=== PATIENT | female | born 1945 | race Caucasian/White ===

== ENCOUNTER 2019-09-30 13:27 | Emergency (ER) | payer MEDICARE, OTHER ==
[~2019-09-30] VITALS: Ht 165.1 cm; Wt 62.9 kg
[~2019-09-30 13:27] MED LIST: ADV50250 IH; ALBU6.7H3 INH; ASPI-1264 PO; ATOR40TA PO; CALC1TAB96 PO; CARI350T PO; DILT120C10 PO; DULO-31 PO; FEXO-124 PO; FLUT16SP2 NS; LOSA1TAB41 PO; METF500T PO; MULT-1085 PO; NITR0.4T SL; NITR100C6 PO; OMEG-79 PO; PANT40TA39 PO; PRED50TA PO; SYN0.075T PO; VITA400T8 PO
[2019-09-30 13:49] VITALS: BP 188/96
[2019-09-30] MEDS ORDERED: PENI500T2 PO (14:37)
[2019-09-30] MEDS ORDERED: IBUP-1984 PO (14:37)
[2019-09-30] MEDS ORDERED: ONDA4TAB6 PO (14:41)
== END 2019-09-30 15:24 | disposition home or self-care (01) ==
LOC: ER 13:27
DX: K04.7 Periapical abscess without sinus (principal); I10 Essential (primary) hypertension; J44.9 Chronic obstructive pulmonary disease, unspecified; E11.9 Type 2 diabetes mellitus without complications; M79.7 Fibromyalgia; Z88.6 Allergy status to analgesic agent; Z79.82 Long term (current) use of aspirin; Z79.899 Other long term (current) drug therapy; Z79.2 Long term (current) use of antibiotics; Z98.890 Other specified postprocedural states; Z90.89 Acquired absence of other organs
CPT/HCPCS: 99283

== ENCOUNTER 2020-07-06 10:27 | Emergency (ER) | payer MEDICARE, OTHER ==
[~2020-07-06] VITALS: Ht 165.1 cm; Wt 70.0 kg
[~2020-07-06 10:27] MED LIST changes: +CALC-1205 PO; -CALC1TAB96 PO; +ONDA4TAB6 PO
[2020-07-06 10:28] VITALS: BP 207/17
[2020-07-06] MEDS ORDERED: IBUP-1985 PO (10:43)
[2020-07-06] MEDS ORDERED: PENI500T2 PO (10:43)
[2020-07-06] MEDS ORDERED: ibuprofen tablet 400 MG TABLET PO ONE (10:45)
[2020-07-06] MEDS ORDERED: ibuprofen 200mg tablet PO ONE (10:50)
== END 2020-07-06 11:04 | disposition home or self-care (01) ==
LOC: ER 10:27
DX: K02.9 Dental caries, unspecified (principal); I10 Essential (primary) hypertension; J44.9 Chronic obstructive pulmonary disease, unspecified; E11.9 Type 2 diabetes mellitus without complications; Z90.89 Acquired absence of other organs; Z98.890 Other specified postprocedural states; Z88.5 Allergy status to narcotic agent; Z88.8 Allergy status to other drugs, medicaments and biological substances; Z79.82 Long term (current) use of aspirin; Z79.899 Other long term (current) drug therapy
CPT/HCPCS: 99283

== ENCOUNTER 2020-12-01 14:59 | Emergency (ER) | payer MEDICARE, OTHER ==
[~2020-12-01] VITALS: Ht 165.1 cm; Wt 65.0 kg
[~2020-12-01 14:59] MED LIST changes: +IBUP-1985 PO
[2020-12-01 16:19] LABS: BASOPHILS # (AUTO) 0.1 X10'3 (0-0.2); BASOPHILS % (AUTO) 0.4 % (0-1); EOSINOPHILS % (AUTO) 0.3 % (0-6); HEMATOCRIT 41.7 % (35.0-45.0); LYMPHOCYTES # (AUTO) 2.2 X10'3 (1.1-4.8); LYMPHOCYTES % (AUTO) 18.7 % (21-51); MEAN CORPUSCULAR HEMOGLOBIN 28.8 PG (27.0-31.0); MEAN CORPUSCULAR HGB CONC 33.6 g/dL (33.0-36.5); MEAN CORPUSCULAR VOLUME 85.7 FL (78-98); MEAN PLATELET VOLUME 8.1 FL (7.4-10.4); MONOCYTES # (AUTO) 0.8 X10'3 (0-0.9); MONOCYTES % (AUTO) 6.7 % (2-12); NEUTROPHILS # (AUTO) 8.7 X10'3 (1.8-7.7); NEUTROPHILS % (AUTO) 73.9 % (42-75); PLATELET COUNT 323 X10'3 (140-440); RED BLOOD COUNT 4.86 X10'6 (4.20-5.60); RED CELL DISTRIBUTION WIDTH 13.7 % (11.5-14.5); WHITE BLOOD COUNT 11.8 X10'3 (4.5-11.0)
[2020-12-01 16:29] LABS: ALANINE AMINOTRANSFERASE 114 U/L (12-78); ALKALINE PHOSPHATASE 248 IU/L (46-116); ANION GAP 8 (8-16); ASPARTATE AMINO TRANSFERASE 150 U/L (10-37); BILIRUBIN,TOTAL 0.5 MG/DL (0.1-1.0); BLOOD UREA NITROGEN 10 MG/DL (7-18); BUN/CREATININE RATIO 16.1 (6.6-38.0); CALCIUM 9.4 MG/DL (8.5-10.1); CHLORIDE 106 MMOL/L (99-107); CREATININE 0.62 MG/DL (0.40-0.90); GLUCOSE 111 MG/DL (70-104); POTASSIUM 3.1 MMOL/L (3.5-5.1); SODIUM 144 MMOL/L (135-145); TOTAL CARBON DIOXIDE 29.8 MMOL/L (24-32); TOTAL PROTEIN 8.2 G/DL (6.4-8.2); eGFR > 90 ML/MIN
--- NOTE | 2020-12-01 18:04 | NUR ---
PA AT BEDSIDE DOING U/S EXAM
[2020-12-01 18:36] VITALS: BP 161/64
[2020-12-01] MEDS ORDERED: potassium Cl 20 mEq SR tablet PO STA (18:59)
[2020-12-01 19:38] LABS: CLARITY,URINE CLEAR (Clear); COLOR,URINE YELLOW (Yellow); GLUCOSE, URINE NEGATIVE (Neg); KETONES,URINE NEGATIVE (Neg); LEUKOCYTE ESTERASE ,URINE NEGATIVE (Neg); NITRITES, URINE NEGATIVE (Neg); OCCULT BLOOD,URINE TRACE-INTACT (Neg); PH,URINE 7.5 (4.8-8.0); PROTEIN,URINE NEGATIVE (Neg); UROBILINOGEN,URINE 0.2 E.U/dL (0.2-1.0)
[2020-12-01 19:46] LABS: UA COLLECTION TYPE STRAIGHT CATH
[2020-12-01 19:47] LABS: BACTERIA,URINE FEW /HPF (Neg); RBC,URINE 0-2 /HPF (0-2); SQUAMOUS EPITHELIAL CELL,UR FEW /LPF (FEW); WBC,URINE NONE SEEN /HPF (0-4)
[2020-12-01] MEDS ORDERED: iohexol 350MG/ML 100ml bottle IV ONE (19:54)
[2020-12-01] MEDS ORDERED: MESSAGE TO NURSING PO NR (20:15)
[2020-12-01] MEDS ORDERED: acetaminophen 325mg tablet PO ONE (21:10)
== END 2020-12-01 21:35 | disposition home or self-care (01) ==
LOC: ER 15:00
DX: S29.012A Strain of muscle and tendon of back wall of thorax, initial encounter (principal); R10.13 Epigastric pain; I25.10 Atherosclerotic heart disease of native coronary artery without angina pectoris; I10 Essential (primary) hypertension; J44.9 Chronic obstructive pulmonary disease, unspecified; E11.9 Type 2 diabetes mellitus without complications; E03.9 Hypothyroidism, unspecified; Z90.89 Acquired absence of other organs; Z98.890 Other specified postprocedural states; Z88.5 Allergy status to narcotic agent; Z88.6 Allergy status to analgesic agent; Z88.8 Allergy status to other drugs, medicaments and biological substances; Z79.82 Long term (current) use of aspirin; Z79.899 Other long term (current) drug therapy; X58.XXXA Exposure to other specified factors, initial encounter; Y93.89 Activity, other specified; Y92.89 Other specified places as the place of occurrence of the external cause; Y99.8 Other external cause status
CPT/HCPCS: 36415; 71045; 71275; 74175; 80053; 81001; 83880; 84484; 85025; 93005; 99285; Q9967

== ENCOUNTER 2020-12-03 17:21 | Emergency (ER) | payer MEDICARE, OTHER ==
[~2020-12-03] VITALS: Ht 165.1 cm; Wt 62.2 kg
[2020-12-03 18:18] LABS: CLARITY,URINE CLOUDY (Clear); COLOR,URINE RED (Yellow); GLUCOSE, URINE NEGATIVE (Neg); KETONES,URINE NEGATIVE (Neg); LEUKOCYTE ESTERASE ,URINE MODERATE (Neg); NITRITES, URINE NEGATIVE (Neg); OCCULT BLOOD,URINE LARGE (Neg); PROTEIN,URINE 100 mg/dl (Neg); UROBILINOGEN,URINE 0.2 E.U/dL (0.2-1.0)
[2020-12-03 18:21] LABS: UA COLLECTION TYPE NON-SPECIFIED
[2020-12-03 18:37] LABS: BACTERIA,URINE 1+ /HPF (Neg); RBC,URINE TNTC /HPF (0-2); WBC CLUMPS,URINE MANY /HPF (NEGATIVE)
[2020-12-03 18:38] LABS: SQUAMOUS EPITHELIAL CELL,UR FEW /LPF (FEW)
[2020-12-03] MEDS ORDERED: normal saline 1000ML IV soln IVB ONE (19:30)
[2020-12-03] MEDS ORDERED: acetaminophen 325mg tablet PO ONE (19:55)
[2020-12-03 19:56] LABS: BASOPHILS % (AUTO) 0.2 % (0-1); EOSINOPHILS % (AUTO) 0.1 % (0-6); HEMATOCRIT 42.4 % (35.0-45.0); LYMPHOCYTES # (AUTO) 1.2 X10'3 (1.1-4.8); LYMPHOCYTES % (AUTO) 5.8 % (21-51); MEAN CORPUSCULAR HEMOGLOBIN 28.5 PG (27.0-31.0); MEAN CORPUSCULAR HGB CONC 32.9 g/dL (33.0-36.5); MEAN CORPUSCULAR VOLUME 86.4 FL (78-98); MEAN PLATELET VOLUME 8.3 FL (7.4-10.4); MONOCYTES % (AUTO) 4.9 % (2-12); NEUTROPHILS # (AUTO) 18.4 X10'3 (1.8-7.7); PLATELET COUNT 307 X10'3 (140-440); RED CELL DISTRIBUTION WIDTH 13.8 % (11.5-14.5); WHITE BLOOD COUNT 20.7 X10'3 (4.5-11.0)
[2020-12-03 20:10] LABS: ALANINE AMINOTRANSFERASE 67 U/L (12-78); ALKALINE PHOSPHATASE 213 IU/L (46-116); ANION GAP 11 (8-16); ASPARTATE AMINO TRANSFERASE 37 U/L (10-37); BILIRUBIN,TOTAL 0.8 MG/DL (0.1-1.0); BLOOD UREA NITROGEN 13 MG/DL (7-18); BUN/CREATININE RATIO 18.6 (6.6-38.0); CALCIUM 9.5 MG/DL (8.5-10.1); CHLORIDE 104 MMOL/L (99-107); GLUCOSE 131 MG/DL (70-104); POTASSIUM 3.6 MMOL/L (3.5-5.1); SODIUM 141 MMOL/L (135-145); TOTAL CARBON DIOXIDE 25.7 MMOL/L (24-32); eGFR 82 ML/MIN
[2020-12-03] MEDS ORDERED: CefTRIAXone 2gm/D5W 50ml BAG 50 ML IV ONE (20:40)
[2020-12-03] MEDS ORDERED: PHEN-786 PO (20:47)
[2020-12-03] MEDS ORDERED: CEPH-585 PO (20:47)
[2020-12-03] MEDS ORDERED: phenazopyridine 100mg tablet PO ONE (20:50)
[2020-12-03 21:02] VITALS: BP 164/77
== END 2020-12-03 21:04 | disposition home or self-care (01) ==
LOC: ER 17:22
DX: N39.0 Urinary tract infection, site not specified (principal); R10.2 Pelvic and perineal pain; R50.9 Fever, unspecified; R11.0 Nausea; R31.9 Hematuria, unspecified; M54.5 Low back pain; I25.10 Atherosclerotic heart disease of native coronary artery without angina pectoris; I10 Essential (primary) hypertension; J44.9 Chronic obstructive pulmonary disease, unspecified; E11.9 Type 2 diabetes mellitus without complications; E03.9 Hypothyroidism, unspecified; Z90.89 Acquired absence of other organs; Z98.890 Other specified postprocedural states; Z88.5 Allergy status to narcotic agent; Z88.6 Allergy status to analgesic agent; Z88.8 Allergy status to other drugs, medicaments and biological substances; Z79.82 Long term (current) use of aspirin; Z79.899 Other long term (current) drug therapy
CPT/HCPCS: 36415; 80053; 81001; 84145; 85025; 87077; 87088; 87186; 96361; 96374; 99283; J0696; J7030

== ENCOUNTER 2021-11-27 07:00 | Emergency (ER) | payer MEDICARE, OTHER ==
[~2021-11-27] VITALS: Ht 162.6 cm; Wt 75.0 kg
[~2021-11-27 07:00] MED LIST changes: +CEPH-585 PO; -FEXO-124 PO; +FEXO-271 PO; +PHEN-786 PO
[2021-11-27 07:04] VITALS: BP 195/72
== END 2021-11-27 08:02 | disposition home or self-care (01) ==
LOC: ER 07:00
DX: I10 Essential (primary) hypertension (principal); M54.2 Cervicalgia; R42 Dizziness and giddiness; E11.9 Type 2 diabetes mellitus without complications; J44.9 Chronic obstructive pulmonary disease, unspecified; E03.8 Other specified hypothyroidism; Z88.5 Allergy status to narcotic agent; Z88.8 Allergy status to other drugs, medicaments and biological substances; Z79.899 Other long term (current) drug therapy
CPT/HCPCS: 93005; 99283

== ENCOUNTER 2023-03-25 14:49 | Emergency (ER) | payer MEDICARE, OTHER ==
[~2023-03-25] VITALS: Ht 165.1 cm; Wt 68.0 kg
[~2023-03-25 14:49] MED LIST changes: -CEPH-585 PO
[2023-03-25 14:56] VITALS: BP 157/96
== END 2023-03-25 22:14 | disposition left against medical advice (07) ==
LOC: ER 14:51
DX: M54.2 Cervicalgia (principal); M54.9 Dorsalgia, unspecified; Z53.21 Procedure and treatment not carried out due to patient leaving prior to being seen by health care provider
CPT/HCPCS: 82948; 99281

== ENCOUNTER 2023-11-01 10:11 | Emergency (ER) | payer MEDICARE, OTHER ==
[~2023-11-01] VITALS: Ht 167.6 cm; Wt 68.2 kg
[2023-11-01] MEDS ORDERED: PRED20TA PO (15:24)
[2023-11-01] MEDS ORDERED: BACL10TA2 PO (15:24)
[2023-11-01 15:37] VITALS: BP 170/73; PULSE 65; RESP 16; TEMP 97.9; O2SAT 99
== END 2023-11-01 15:39 | disposition home or self-care (01) ==
LOC: ER 10:11
DX: M47.812 Spondylosis without myelopathy or radiculopathy, cervical region (principal); I11.0 Hypertensive heart disease with heart failure; J45.909 Unspecified asthma, uncomplicated; J44.9 Chronic obstructive pulmonary disease, unspecified; E11.9 Type 2 diabetes mellitus without complications; E03.9 Hypothyroidism, unspecified; Z98.890 Other specified postprocedural states; Z88.8 Allergy status to other drugs, medicaments and biological substances; Z79.899 Other long term (current) drug therapy; Z88.5 Allergy status to narcotic agent
CPT/HCPCS: 72125; 99284

== ENCOUNTER 2024-03-16 16:35 | Outpatient (CLI) | payer MEDICARE, OTHER ==
[~2024-03-16 16:35] MED LIST changes: +BACL10TA2 PO
[2024-03-16 17:06] LABS: BASOPHILS # (AUTO) 0.1 X10'3 (0-0.2); BASOPHILS % (AUTO) 0.8 % (0-1); EOSINOPHILS # (AUTO) 0.1 X10'3 (0-0.9); EOSINOPHILS % (AUTO) 0.8 % (0-6); HEMATOCRIT 42.7 % (35.0-45.0); HEMOGLOBIN 14.3 g/dl (12.0-16.0); LYMPHOCYTES # (AUTO) 2.3 X10'3 (1.1-4.8); LYMPHOCYTES % (AUTO) 24.7 % (21-51); MEAN CORPUSCULAR HEMOGLOBIN 28.3 PG (27.0-31.0); MEAN CORPUSCULAR HGB CONC 33.5 g/dL (33.0-36.5); MEAN CORPUSCULAR VOLUME 84.3 FL (78-98); MEAN PLATELET VOLUME 8.8 FL (7.4-10.4); MONOCYTES # (AUTO) 0.8 X10'3 (0-0.9); MONOCYTES % (AUTO) 8.3 % (2-12); NEUTROPHILS # (AUTO) 6.1 X10'3 (1.8-7.7); NEUTROPHILS % (AUTO) 65.4 % (42-75); PLATELET COUNT 320 X10'3 (140-440); RED BLOOD COUNT 5.07 X10'6 (4.20-5.60); RED CELL DISTRIBUTION WIDTH 14.5 % (11.5-14.5); WHITE BLOOD COUNT 9.3 X10'3 (4.5-11.0)
[2024-03-16 17:25] LABS: HEMOGLOBIN A1C 6.1 % (4.5-6.2)
[2024-03-16 17:26] LABS: ALANINE AMINOTRANSFERASE 20 U/L (12-78); ALBUMIN 3.8 G/DL (3.4-5.0); ALBUMIN/GLOBULIN RATIO 0.9 (1.1-1.5); ALKALINE PHOSPHATASE 111 IU/L (46-116); ANION GAP 8 (8-16); ASPARTATE AMINO TRANSFERASE 15 U/L (10-37); BILIRUBIN,TOTAL 0.8 MG/DL (0.1-1.0); BLOOD UREA NITROGEN 10 MG/DL (7-18); BUN/CREATININE RATIO 11.5 (10.0-20.0); C-REACTIVE PROTEIN 0.45 MG/DL (0.0-0.5); CALCIUM 9.9 MG/DL (8.5-10.1); CHLORIDE 103 MMOL/L (99-107); CHOL/HDL RATIO 5.9 (0.00-4.99); CHOLESTEROL 223 MG/DL (0-200); CREATININE 0.87 MG/DL (0.40-0.90); FREE T4 (FREE THYROXINE) 0.86 NG/DL (0.73-1.40); GLUCOSE 126 MG/DL (70-104); HDL CHOLESTEROL 38 MG/DL (35-60); LDL CHOLESTEROL 136 MG/DL (50-100); SODIUM 144 MMOL/L (135-145); THYROID STIMULATING HORMONE 3.17 ulU/ml (0.34-4.50); TOTAL CARBON DIOXIDE 32.7 MMOL/L (24-32); TRIGLYCERIDES 318 MG/DL (20-135); eGFR 63 ML/MIN
== END 2024-03-16 23:59 | disposition home or self-care (01) ==
LOC: RAD 16:35
PROVIDERS: ATTEND Family Medicine
DX: I10 Essential (primary) hypertension (principal); E78.5 Hyperlipidemia, unspecified; E03.9 Hypothyroidism, unspecified; E11.9 Type 2 diabetes mellitus without complications; E83.51 Hypocalcemia; Z76.89 Persons encountering health services in other specified circumstances
CPT/HCPCS: 36415; 80053; 80061; 82306; 83036; 84439; 84443; 85025; 86140

== ENCOUNTER 2024-03-19 10:20 | Outpatient (CLI) | payer MEDICARE, OTHER | END 2024-03-19 23:59 | disposition home or self-care (01) | LOC: RAD 10:20 | PROVIDERS: ATTEND Family Medicine | DX: E87.6 Hypokalemia (principal) | CPT/HCPCS: 36415; 82088; 84244 ==

== ENCOUNTER 2024-08-05 07:43 | Emergency (ER) | payer MEDICARE, OTHER ==
[~2024-08-05] VITALS: Ht 162.6 cm; Wt 66.8 kg
[2024-08-05 07:47] VITALS: TEMP 98.5
[2024-08-05 08:50] LABS: BASOPHILS # (AUTO) 0.1 X10'3 (0-0.2); BASOPHILS % (AUTO) 0.6 % (0-1); EOSINOPHILS # (AUTO) 0.1 X10'3 (0-0.9); EOSINOPHILS % (AUTO) 0.9 % (0-6); HEMATOCRIT 45.4 % (35.0-45.0); HEMOGLOBIN 15.4 g/dl (12.0-16.0); LYMPHOCYTES # (AUTO) 1.9 X10'3 (1.1-4.8); LYMPHOCYTES % (AUTO) 20.8 % (21-51); MEAN CORPUSCULAR HEMOGLOBIN 28.9 PG (27.0-31.0); MEAN CORPUSCULAR HGB CONC 33.8 g/dL (33.0-36.5); MEAN CORPUSCULAR VOLUME 85.5 FL (78-98); MEAN PLATELET VOLUME 8.5 FL (7.4-10.4); MONOCYTES # (AUTO) 0.6 X10'3 (0-0.9); MONOCYTES % (AUTO) 6.3 % (2-12); NEUTROPHILS # (AUTO) 6.5 X10'3 (1.8-7.7); NEUTROPHILS % (AUTO) 71.4 % (42-75); PLATELET COUNT 308 X10'3 (140-440); RED BLOOD COUNT 5.31 X10'6 (4.20-5.60); RED CELL DISTRIBUTION WIDTH 14.1 % (11.5-14.5); WHITE BLOOD COUNT 9.1 X10'3 (4.5-11.0)
[2024-08-05 09:02] LABS: ALANINE AMINOTRANSFERASE 16 U/L (12-78); ALBUMIN 4.2 G/DL (3.4-5.0); ALBUMIN/GLOBULIN RATIO 0.9 (1.1-1.5); ALKALINE PHOSPHATASE 152 IU/L (46-116); ANION GAP 10 (8-16); ASPARTATE AMINO TRANSFERASE 16 U/L (10-37); BILIRUBIN,TOTAL 0.8 MG/DL (0.1-1.0); BLOOD UREA NITROGEN 12 MG/DL (7-18); BUN/CREATININE RATIO 12.8 (10.0-20.0); CALCIUM 9.7 MG/DL (8.5-10.1); CHLORIDE 102 MMOL/L (99-107); CREATININE 0.94 MG/DL (0.40-0.90); GLUCOSE 123 MG/DL (70-104); POTASSIUM 3.2 MMOL/L (3.5-5.1); SODIUM 141 MMOL/L (135-145); TOTAL CARBON DIOXIDE 29.3 MMOL/L (24-32); TOTAL PROTEIN 8.9 G/DL (6.4-8.2); eCRCL 43 ML/MIN; eGFR 58 ML/MIN
[2024-08-05 09:09] LABS: PRO BRAIN NATRIURETIC PEPTIDE 58 PG/ML (0-450)
[2024-08-05] MEDS: diltiazem 5mg/ml 5ml inj. IV ONE (11:26)
[2024-08-05 13:23] VITALS: BP 135/76; PULSE 61; RESP 12; O2SAT 99
== END 2024-08-05 13:23 | disposition home or self-care (01) ==
LOC: ER 07:44
DX: R07.89 Other chest pain (principal); I25.10 Atherosclerotic heart disease of native coronary artery without angina pectoris; E11.9 Type 2 diabetes mellitus without complications; E03.9 Hypothyroidism, unspecified; J45.909 Unspecified asthma, uncomplicated; J44.9 Chronic obstructive pulmonary disease, unspecified; M79.7 Fibromyalgia; I10 Essential (primary) hypertension; Z90.89 Acquired absence of other organs; Z88.6 Allergy status to analgesic agent; Z88.5 Allergy status to narcotic agent; Z88.8 Allergy status to other drugs, medicaments and biological substances; Z79.82 Long term (current) use of aspirin; Z98.890 Other specified postprocedural states; Z79.1 Long term (current) use of non-steroidal anti-inflammatories (NSAID); Z79.52 Long term (current) use of systemic steroids; Z79.84 Long term (current) use of oral hypoglycemic drugs; Z79.899 Other long term (current) drug therapy
CPT/HCPCS: 36415; 71045; 80053; 83880; 84484; 85025; 93005; 96374; 99285; J3490

== ENCOUNTER 2025-01-06 10:31 | Emergency (ER) | payer MEDICARE, OTHER ==
[~2025-01-06] VITALS: Ht 162.6 cm; Wt 64.7 kg
--- NOTE | 2025-01-06 10:56 | ELECTROCARDIOGRAPH REPORT ---
[facility] Test Date: 2025-01-06 Test Time: 10:54:11 Pat Name: JAZZ ALMONTE Department: [facility]- Patient ID: [id number] Room: Gender: F Veterinary Attendant: : 1945 Requested By: FRANCOIS TERRAZAS Order Number: [id number] Reading MD: Dr. Ed Barr Measurements Intervals [place] Rate: 74 P: 56 PA: 177 QRS: -21 QRSD: 93 T: 26 QT: 419 QTc: 465 Interpretive Statements Sinus rhythm Borderline left axis deviation Borderline T abnormalities, anterior leads Electronically Signed On 01-07-2025 19:02:[address] Ed Barr Please click the below link to view image of tracing.
[2025-01-06 11:26] LABS: BASOPHILS # (AUTO) 0.1 X10'3 (0-0.2); BASOPHILS % (AUTO) 1.1 % (0-1); EOSINOPHILS # (AUTO) 0.1 X10'3 (0-0.9); EOSINOPHILS % (AUTO) 1.4 % (0-6); HEMATOCRIT 45.4 % (35.0-45.0); HEMOGLOBIN 15.2 g/dl (12.0-16.0); LYMPHOCYTES # (AUTO) 1.4 X10'3 (1.1-4.8); LYMPHOCYTES % (AUTO) 21.4 % (21-51); MEAN CORPUSCULAR HEMOGLOBIN 27.7 PG (27.0-31.0); MEAN CORPUSCULAR HGB CONC 33.5 g/dL (33.0-36.5); MEAN CORPUSCULAR VOLUME 82.7 FL (78-98); MEAN PLATELET VOLUME 8.1 FL (7.4-10.4); MONOCYTES # (AUTO) 0.4 X10'3 (0-0.9); MONOCYTES % (AUTO) 6.3 % (2-12); NEUTROPHILS # (AUTO) 4.7 X10'3 (1.8-7.7); NEUTROPHILS % (AUTO) 69.8 % (42-75); PLATELET COUNT 289 X10'3 (140-440); RED CELL DISTRIBUTION WIDTH 14.4 % (11.5-14.5); WHITE BLOOD COUNT 6.7 X10'3 (4.5-11.0)
--- NOTE | 2025-01-06 11:31 | Physician Documentation ---
History of Present Illness ~ Chief Complaint: Stroke Alert Stated Complaint: BACK AND NECK PAIN FROM FALL Time Seen by MD: 10:58 Primary Medical Doctor: Raymond CORMIER 79-year-old female presenting with two weeks of dizziness. She states that she had one episode two weeks ago while she was walking her dogs and she suddenly became very dizzy and fell backwards and hit her head on the ground. She did not lose consciousness and was able to get back up and get back home. Over the last couple of days she has noticed that she has started to get very dizzy once again. She describes the dizziness as the room spinning and when it occurs she will be unsteady on her feet and feels like she is going to fall. She denies any chest pain, shortness of breath or any other associated symptoms. Medication Reconciliation Allergies: Coded Allergies: Soap (Unverified Allergy, Intermediate, 08/05/24) acetaminophen (Verified Allergy, Intermediate, 08/05/24) codeine (Unverified Allergy, Intermediate, 08/05/24) hydrocodone bit (Verified Allergy, Intermediate, 08/05/24) povidone-iodine (Unverified Allergy, Intermediate, 08/05/24) Scheduled Aspirin* (Aspirin*), 2 TAB PO DAILY, (Reported) Atorvastatin Calcium* (Lipitor*), 40 MG PO HS, (Reported) Baclofen (Baclofen), 1 TAB PO Q8H Carisoprodol* (Soma*), 350 MG PO HS, (Reported) Diltiazem Hcl (Diltiazem Er), 1 CAP PO DAILY, (Reported) Duloxetine Hcl* (Cymbalta*), 60 MG PO DAILY, (Reported) Fexofenadine Hcl* (Danika*), 1 TAB PO DAILY, (Reported) Fluticasone Propionate (Flonase), 1 SPR NS DAILY, (Reported) Fluticasone/Salmeterol* (Advair 250-50 Diskus*), 1 PUFF IH BID, (Reported) Ibuprofen (Ibuprofen), 1 TAB PO Q8H Levothyroxine Sodium* (Synthroid*), 75 MCG PO DAILY, (Reported) Losartan/Hydrochlorothiazide (Losartan-Hctz 100-12.5 Mg Tab), 1 EACH PO DAILY, (Reported) Meclizine HCl (Meclizine HCl), 1 TAB PO TID PRN Metformin Hcl* (Glucophage*), 1-2 TAB PO BID, (Reported) Multivitamin (Multi Vitamin Daily), 1 EACH PO DAILY, (Reported) Nitrofurantoin Monohyd/M-Cryst (Macrobid 100 mg Capsule), 1 CAP PO Q12H Ondansetron Hcl (Zofran), 1 TAB PO Q6H Pantoprazole Sodium* (Protonix*), 1 TAB PO QAM, (Reported) Prednisone (Prednisone), 1 TAB PO DAILY Vitamin E Acid Succinate (Vitamin E), 400 UNIT PO DAILY, (Reported) Scheduled PRN Albuterol Sulfate (Proventil Hfa), 2 PUFF INH Q4H PRN for SOB or wheezing, (Reported) Phenazopyridine Hcl (Pyridium tablet), 2 TAB PO Q8H PRN for pain Miscellaneous Medications Calcium Carbonate/Vitamin D3 (Calcium 600 + Vit D3 Tablet), 1 EACH PO, (Reported) Nitroglycerin (Nitrostat), 0.4 MG SL, (Reported) [place]-3 Fatty Acids/Fish Oil (Fish Oil 1,000 Mg Softgel), 2 EACH PO, (Reported) Past Medical History Past Medical History: Coronary Artery Disease, Heart Valve Disease, Hypertension, Asthma, COPD, Diabetes, Hypothyroidism, Fibromyalgia Past Surgical History: , orthopedic surgeries, tonsillectomy Alcohol Use: None Drug Use: none Lives with: Family Lives In: Home Occupation: retired Review of Systems All Other Systems at this time: Reviewed and Negative Physical Exam Vital Signs: Temperature: 98.5, Source: Oral, Heart Rate: 69, Respiratory Rate: 12, BP: 187/69, Pulse Oximetry: 97, Weight: 64.700 Oxygen Flow Rate: 0 Physical Exam I have reviewed the triage vitals. CONST: Well developed and well nourished. In no acute distress HENT: Head Atraumatic EYES: Pupils are equal, round and reactive to light. Normal conjunctiva NECK: Normal range of motion. Supple. CARDIO: Normal rate and regular rhythm. No murmurs, rubs, or gallops. S1, S2. PULM/CHEST: No respiratory distress. Lungs clear to auscultation. No wheeze ABD: Soft and nontender. Nondistended. Bowel sounds normal. No guarding. : Exam deferred MSK: No edema. No deformity. NEURO: Alert and oriented to person, place and time. Moving all extremities SKIN: Warm and dry. PSYCH: Normal mood and affect. Good eye contact. Progress Results/Orders Results/Orders Orders - FRANCOIS TERRAZAS MD Monitor (01/06/25 10:44) 2 Large Bore Ivs (01/06/25 10:44) Chest,Single View (01/06/25 10:44) Accucheck (01/06/25 10:44) Ct Stroke Alert (01/06/25 11:08) Cta Neck/Head (01/06/25 14:08) Completed Orders - FRANCOIS TERRAZAS MD Cbc/Diff (01/06/25 10:44) Electrocardiogram (01/06/25 10:44) Chest,Single View (01/06/25 10:44) Ct Stroke Alert (01/06/25 11:08) BMP (01/06/25 10:44) PTT (01/06/25 10:44) Pt Inr (01/06/25 10:44) Normal Saline 1000ml (Sodium Chloride 10 (01/06/25 11:30) Meclizine Tablets (Antivert Tablet) (01/06/25 11:30) Clonidine Tablet (Catapres Tablet) (01/06/25 11:30) Potassium Cl Sr Tablet (K-Dur Tablet) (01/06/25 13:06) Cta Neck/Head (01/06/25 14:08) Iohexol 350mg/Ml 100ml (Omnipaque 350mg/ (01/06/25 13:31) Medications Received in ER Medications (Trade) Dose Ordered Sig/Nabil Route PRN Reason Start Time Stop Time Status Last Admin Dose Admin Sodium Chloride 1,000 ml @ 1,000 mls/hr ONCE ONCE IV 01/06/25 11:30 01/06/25 12:29 DC 01/06/25 12:01 1,000 MLS/HR (Antivert tablet) 25 mg ONCE ONCE PO 01/06/25 11:30 01/06/25 11:31 DC 01/06/25 12:05 25 MG (Catapres tablet) 0.1 mg ONCE ONCE PO 01/06/25 11:30 01/06/25 11:31 DC 01/06/25 12:05 0.1 MG (K-DUR tablet) 20 meq ONCE STAT PO 01/06/25 13:06 01/06/25 13:08 DC 01/06/25 13:41 20 MEQ Vital Signs 01/06/25 01/06/25 01/06/25 01/06/25 10:38 11:29 11:30 11:31 Temp 98.5 Pulse 82 69 67 Resp 16 12 14 11 B/P (MAP) 215/100 187/69 (108) 187/69 (108) Pulse Ox 97 97 96 O2 Flow Rate 0 01/06/25 01/06/25 01/06/25 01/06/25 12:00 12:30 12:45 15:16 Pulse 59 58 62 62 Resp 16 13 14 10 B/P (MAP) 200/81 (120) 187/69 (108) 131/60 (83) Pulse Ox 97 98 97 99 01/06/25 01/06/25 01/06/25 16:14 16:15 16:58 Temp 97.7 Pulse 54 55 71 Resp 14 16 15 B/P (MAP) 183/75 175/79 (111) 189/94 Pulse Ox 98 97 96 O2 Flow Rate 0 Laboratory Tests Test 01/06/25 11:16 01/06/25 11:27 White Blood Count 6.7 Red Blood Count 5.50 Hemoglobin 15.2 Hematocrit 45.4 H Mean Corpuscular Volume 82.7 Mean Corpuscular Hemoglobin 27.7 Mean Corpuscular Hemoglobin Concent 33.5 Red Cell Distribution Width 14.4 Platelet Count 289 Mean Platelet Volume 8.1 Neutrophils (%) (Auto) 69.8 Lymphocytes (%) (Auto) 21.4 Monocytes (%) (Auto) 6.3 Eosinophils (%) (Auto) 1.4 Basophils (%) (Auto) 1.1 H Neutrophils # (Auto) 4.7 Lymphocytes # (Auto) 1.4 Monocytes # (Auto) 0.4 Eosinophils # (Auto) 0.1 Basophils # (Auto) 0.1 CBC Comment Prothrombin Time 9.9 INR International Normalized Ratio 1.0 Activated Partial Thromboplast Time 27 Coagulation Comments Sodium Level 143 Potassium Level 3.3 L Chloride Level 105 Carbon Dioxide Level 31.6 Anion Gap 6 L Blood Urea Nitrogen 10 Creatinine 0.79 Estimated GFR/1.73 m2 71 BUN/Creatinine Ratio 12.7 Glucose Level 108 H Calcium Level 9.3 Albumin 3.7 Chemistry Comments Glucometer 120 H EKG/XRAY/CT/US/VASC/MRI EKG : Additional Comment EKG as interpreted by me indicates normal sinus rhythm with a rate of 74 beats per minute, no ischemia, no other ST changes, normal axis Chest X-Ray : Additional Comments DI CHEST,SINGLE VIEW, HISTORY: Stroke Alert COMPARISON: DI CHEST,SINGLE VIEW on DOS: 08/05/24, CHEST,SINGLE VIEW on DOS: 12/01/20 DI CHEST,SINGLE VIEW on DOS: 08/05/24, CHEST,SINGLE VIEW on DOS: 12/01/20 TECHNICAL DATA: 1 view of the chest was obtained. FINDINGS: Lines and tubes: None Cardiomediastinal silhouette: normal Pulmonary vasculature: normal Lung expansion: normal Lung airspace: normal Lung interstitium: normal Pleura: normal Pneumothorax: no Bones: Unremarkable Other: no IMPRESSION: No acute intrathoracic abnormality. : Impression CT CT STROKE ALERT INDICATION: Stroke Alert : 79 old Female Stroke Alert EXAM DATE: 01/06/2025 11:04 AM COMPARISON: None RADIATION DOSE: CTDIvol: 51 mGy, DLP: 907 mGy*cm PROCEDURE: CT scans of the head were obtained from the vertex to the skull base. Sagittal and coronal reconstructions were provided. All CT scans at this medical facility are performed using dose modulation techniques as appropriate to a performed exam including the following: Automated exposure control was utilized; adjustment of the MA and/or KV according to patient size; and use of iterative reconstruction technique. FINDINGS: There is sulcal and ventricular prominence. The brainshows normal morphology and story-white matter differentiation, without intracranial hemorrhage, extra-axial fluid collection, mass effect or acute large vessel infarct. The ventricles are normal in size. The basal cisterns are patent. The skull and visible facial bones are intact. The paranasal sinuses, mastoid air cells and middle ear cavities are well-aerated. The soft tissues of the scalp are unremarkable. IMPRESSION: No acute intracranial abnormality. Medical Decision Making Additional Information 79-year-old female presenting with vertigo like symptoms. CT of the head was unremarkable. Lab workup did indicate a slightly low potassium of 3.3 but was otherwise unremarkable. Departure Disposition: HOME / SELF CARE / HOMELESS Impression: Primary Impression: Benign positional vertigo Additional Impression: Hypokalemia Condition: Improved Discharge Instructions: Benign Positional Vertigo Referrals: NO PRIMARY CARE PROVIDER (PCP) Prescriptions Meclizine HCl (Meclizine HCl) 25 Mg Tablet 1 TAB PO TID PRN for 10 Days, #30 TAB Prov: FRANCOIS TERRAZAS MD 01/06/25 Comments Take medications as prescribed. Get plenty of rest and drink plenty of fluids. Monitor symptoms for improvement. Follow up with primary care physician in the next 2-3 days and return to the ED with any acutely worsening symptoms. Education Additional Comment Take medications as prescribed. Get plenty of rest and drink plenty of fluids. Monitor symptoms for improvement. Follow up with primary care physician in the next 2-3 days and return to the ED with any acutely worsening symptoms. Signature Scribe Signature: 1 Attestation: 1 FRANCOIS TERRAZAS MD Jan 06, 2025 11:31
--- NOTE | 2025-01-06 11:36 | RADIOLOGY REPORT ---
CT CT STROKE ALERT INDICATION: Stroke Alert : 79 old Female Stroke Alert EXAM DATE: 01/06/2025 11:04 AM COMPARISON: None RADIATION DOSE: CTDIvol: 51 mGy, DLP: 907 mGy*cm PROCEDURE: CT scans of the head were obtained from the vertex to the skull base. Sagittal and coronal reconstructions were provided. All CT scans at this medical facility are performed using dose modulation techniques as appropriate t o a performed exam including the following: Automated exposure control was utilized; adjustment of th e MA and/or KV according to patient size; and use of iterative reconstruction technique. FINDINGS: There is sulcal and ventricular prominence. The brainshows normal morphology and story-whi te matter differentiation, without intracranial hemorrhage, extra-axial fluid collection, mass effect or acute large vessel infarct. The ventricles are normal in size. The basal cisterns are patent. The skull and visible facial bones are intact. The paranasal sinuses, mastoid air cells and middle ear c avities are well-aerated. The soft tissues of the scalp are unremarkable. IMPRESSION: No acute intracranial abnormality.
[2025-01-06 11:41] LABS: ALBUMIN 3.7 G/DL (3.4-5.0); ANION GAP 6 (8-16); BLOOD UREA NITROGEN 10 MG/DL (7-18); BUN/CREATININE RATIO 12.7 (10.0-20.0); CALCIUM 9.3 MG/DL (8.5-10.1); CHLORIDE 105 MMOL/L (99-107); CREATININE 0.79 MG/DL (0.40-0.90); GLUCOSE 108 MG/DL (70-104); POTASSIUM 3.3 MMOL/L (3.5-5.1); SODIUM 143 MMOL/L (135-145); TOTAL CARBON DIOXIDE 31.6 MMOL/L (24-32); eCRCL 52 ML/MIN; eGFR 71 ML/MIN
--- NOTE | 2025-01-06 11:41 | RADIOLOGY REPORT ---
DI CHEST,SINGLE VIEW, HISTORY: Stroke Alert COMPARISON: DI CHEST,SINGLE VIEW on DOS: 08/05/24, CHEST,SINGLE VIEW on DOS: 12/01/20 DI CHEST,SINGLE VIEW on DOS: 08/05/24, CHEST,SINGLE VIEW on DOS: 12/01/20 TECHNICAL DATA: 1 view of the chest was obtained. FINDINGS: Lines and tubes: None Cardiomediastinal silhouette: normal Pulmonary vasculature: normal Lung expansion: normal Lung airspace: normal Lung interstitium: normal Pleura: normal Pneumothorax: no Bones: Unremarkable Other: no IMPRESSION: No acute intrathoracic abnormality.
[2025-01-06 11:44] LABS: APTT 27 SECONDS (22-32); PROTHROMBIN TIME 9.9 SECONDS (9.0-12.0)
[2025-01-06] MEDS: normal saline 1000ml 1,000 ML IV ONE (12:01)
[2025-01-06] MEDS: cloNIDine 0.1 mg tablet PO ONE (12:05)
[2025-01-06] MEDS: meclizine 12.5mg tablet PO ONE (12:05)
[2025-01-06] MEDS ORDERED: iohexol 350MG/ML 100ml bottle IV ONE (13:31)
[2025-01-06] MEDS: potassium Cl 20 mEq SR tablet PO STA (13:41)
[2025-01-06 16:15] VITALS: TEMP 97.7
[2025-01-06] MEDS ORDERED: MECL-302 PO (16:47)
[2025-01-06 16:58] VITALS: BP 189/94; PULSE 71; RESP 15; O2SAT 96
--- NOTE | 2025-01-06 17:20 | RADIOLOGY REPORT ---
INDICATION: r/o CVA COMPARISON: None TECHNIQUE: CTA imaging of the head was performed through the [place] following the uneventf ul administration of intravenous contrast. Sagittal and coronal reformatted images were obtained from the source data. 3D/MIP post-processing of the source data set was performed and reviewed by the radiologist. Radiation Dose Information: CT Dose: CTDI volume is 12.55 mGy. Dose-length product is 427.15 mGy*cm Omnipaque 350: 100 mL FINDINGS: The caliber and course of the distal internal carotid arteries is unremarkable. No evidence of high-g rade stenosis or occlusion of the proximal branch vessels of the [place]. The anterior commu nicating artery is present. The V4 segments of the bilateral vertebral arteries are unremarkable in c aliber. The posterior inferior cerebellar arteries are grossly unremarkable. Bilateral posterior comm unicating arteries are present. No evidence of large aneurysm or arteriovenous malformation. Left vertebral artery normal size. Right vertebral artery is diminutive in size. IMPRESSION: 1. No evidence of high-grade stenosis or occlusion of the proximal branch vessels of the [place]. No evidence of large aneurysm or arteriovenous malformation. 2. No large vessel occlusion. All CT scans at this medical facility are performed using dose modulation techniques as appropriate t o a performed exam including the following: Automated exposure control was utilized; adjustment of th e MA and/or KV according to patient size; and use of iterative reconstruction technique. HS:Y
== END 2025-01-06 17:01 | disposition home or self-care (01) ==
LOC: ER 10:32
DX: H81.10 Benign paroxysmal vertigo, unspecified ear (principal); E87.6 Hypokalemia; E03.9 Hypothyroidism, unspecified; E11.9 Type 2 diabetes mellitus without complications; I10 Essential (primary) hypertension; I25.10 Atherosclerotic heart disease of native coronary artery without angina pectoris; J44.9 Chronic obstructive pulmonary disease, unspecified; M79.7 Fibromyalgia; Z88.5 Allergy status to narcotic agent; Z79.82 Long term (current) use of aspirin; Z88.8 Allergy status to other drugs, medicaments and biological substances; Z90.89 Acquired absence of other organs; Z91.041 Radiographic dye allergy status
CPT/HCPCS: 36415; 70450; 70496; 70498; 71045; 80048; 82948; 85025; 85610; 85730; 93005; 96360; 99285; J7030; J8597; Q9967